=== PATIENT | male | born 1970 ===

== ENCOUNTER 2018-09-06 04:22 | Emergency (ER) | payer SELFPAY ==
[2018-09-06 04:23] VITALS: BMI 31.3
--- NOTE | 2018-09-06 04:39 | C.PDOC ---
History Of Present Illness Patient presents to the ER with a complaint of nausea, vomiting, and abdominal pain after having dinner from an outside source a few hours ago. Denies fever or chills. Time Seen by Provider: 09/06/18 04:38 History Per: Patient History/Exam Limitations: no limitations Onset/Duration Of Symptoms: Hrs Current Symptoms Are (Timing): Still Present Context: Food Severity: Moderate Pain Scale Rating Of: 4 Location Of Pain/Discomfort: Diffuse Radiation Of Pain To:: None Quality Of Discomfort: Unable To Describe Associated Symptoms: Nausea, Vomiting. denies: Fever, Chills Exacerbating Factors: None Alleviating Factors: None Recent travel outside of the [place]: No Past Medical History Reviewed: Historical Data, Nursing Documentation, Vital Signs - [facility] Procedures OP RED-INT FIX TIB/FIBUL (03/31/13) Family History: States: No Known Family Hx - Social History Hx Alcohol Use: Yes Hx Substance Use: No Review Of Systems Constitutional: Negative for: Fever, Chills Cardiovascular: Negative for: Chest Pain, Palpitations Respiratory: Negative for: Cough, Shortness of Breath Gastrointestinal: Positive for: Nausea, Vomiting, Abdominal Pain Genitourinary: Negative for: Dysuria, Hematuria Physical Exam - Physical Exam Appears: Non-toxic Skin: Warm, Dry Head: Normacephalic Oral Mucosa: Moist Chest: Symmetrical, No Tenderness Cardiovascular: Rhythm Regular Respiratory: No Rales, No Rhonchi, No Wheezing Gastrointestinal/Abdominal: Soft, Tenderness (Diffuse), No Guarding, No Rebound Back: Normal Inspection Extremity: Normal ROM Neurological/Psych: Oriented x3 Gait: Steady ED Course And Treatment - Laboratory Results Result Diagrams: 09/06/18 04:42 09/06/18 04:55 O2 Sat by Pulse Oximetry: 100 Pulse Ox Interpretation: Normal Progress Note: Blood work and urinalysis ordered. Pepcid, zofran, and IV fluids administered. Reevaluation Time: 06:24 Reassessment Condition: Improved Disposition Counseled Patient/Family Regarding: Studies Performed, Diagnosis, Need For Foll owup - Disposition Referrals: [facility] [Outside] Disposition: HOME/ ROUTINE Disposition Time: 04:39 Condition: FAIR Additional Instructions: Please return if symptoms recur Prescriptions: Ondansetron ODT [Zofran ODT] 1 odt PO BID PRN #10 odt PRN Reason: Nausea/Vomiting Instructions: Food Poisoning (DC), Nausea and Vomiting, Adult (DC) - Clinical Impression Clinical Impression: Abdominal pain, Food poisoning, Nausea & vomiting - Scribe Statement The provider has reviewed the documentation as recorded by the Scriberinn Nixon All medical record entries made by the Alvaibe were at my direction and pe rsonally dictated by me. I have reviewed the chart and agree that the record accurately reflects my personal performance of the history, physical exam, medical decision making, and the department course for this patient. I have also personally directed, reviewed, and agree with the discharge instructions and disposition.
[2018-09-06] MEDS ORDERED: Sodium Chloride 0.9% 1,000 ML IV ONE (04:42)
[2018-09-06 04:56] LABS: BASO # 0.1 K/uL (0.0-0.2); BASO % 0.4 % (0.0-2.0); EOS # 0.1 K/uL (0.0-0.7); EOS % 0.6 % (0.0-4.0); HEMOGLOBIN 15.1 g/dL (12.0-18.0); LYMPH # 3.5 K/uL (1.0-4.3); LYMPH % 25.1 % (20.0-40.0); MEAN PLATELET VOLUME 9.2 fL (7.2-11.7); MONO # 0.6 K/uL (0.0-0.8); MONO % 4.1 % (0.0-10.0); NEUT # 9.6 K/uL (1.8-7.0); NEUT % 69.8 % (50.0-75.0); NRBC % 0.1 % (0.0-2.0); RBC 5.4 Mil/uL (4.40-5.90); RED CELL DISTRIBUTION WIDTH 13.4 % (11.5-14.5); WHITE BLOOD COUNT 13.8 K/uL (4.8-10.8)
[2018-09-06 04:59] LABS: MEAN CELL VOLUME 82.3 fL (80.0-94.0)
[2018-09-06] MEDS ORDERED: Sodium Chloride 0.9% 1,000 ML ONE (05:01)
[2018-09-06 05:07] LABS: ALB/GLOB RATIO 1.7 (1.0-2.1); ALBUMIN 4.4 g/dL (3.5-5.0); ALT/SGPT 27 U/L (21-72); AST/SGOT 16 U/L (17-59); BLOOD UREA NITROGEN 19 mg/dL (9-20); GFR NON-AFRICAN AMERICAN > 60; LIPASE 166 U/L (23-300)
[2018-09-06 06:35] VITALS: BP 118/63; PULSE 55; RESP 18; TEMP 98.3; O2SAT 98
[2018-09-06 06:39] LABS: SQUAMOUS EPITHIAL < 1 /hpf (0-5); URINE BILIRUBIN NEGATIVE (NEGATIVE); URINE BLOOD NEGATIVE (NEGATIVE); URINE CLARITY Clear (Clear); URINE COLOR Yellow (YELLOW); URINE GLUCOSE (UA) 1+ mg/dL (Normal); URINE LEUKOCYTE ESTERASE NEG Leu/uL (Negative); URINE PROTEIN NEGATIVE (NEGATIVE); URINE UROBILINOGEN NORMAL mg/dL (0.2-1.0)
== END 2018-09-06 06:37 | disposition home or self-care (01) ==
LOC: C.ER 04:22
DX: T62.91XA Toxic effect of unspecified noxious substance eaten as food, accidental (unintentional), initial encounter (principal); R11.2 Nausea with vomiting, unspecified; R10.9 Unspecified abdominal pain
CPT/HCPCS: 80053; 81001; 83690; 85025; 96361; 96374; 96375; 99284; J2405; J7030

== ENCOUNTER 2018-11-28 05:57 | Inpatient (IN) | payer MEDICAID, OTHER ==
--- NOTE | 2018-11-28 05:59 | C.PDOC ---
History Of Present Illness Patient presents with sudden onset of severe ruq and mid epigastric abdominal pain. No fever chills, No chest pain, no shortness of breath, no tearing back pain, no arm pain. 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 In the ed, pt is diaphoretic. Time Seen by Provider: 11/28/18 05:59 History Per: Patient History/Exam Limitations: no limitations Onset/Duration Of Symptoms: Hrs Current Symptoms Are (Timing): Worse Context: Other Severity: Severe Pain Scale Rating Of: 9 Location Of Pain/Discomfort: RUQ, Epigastric Radiation Of Pain To:: None Quality Of Discomfort: Sharp Associated Symptoms: Nausea, Vomiting, Other (diaphoretic). denies: Fever, Chills Exacerbating Factors: None Alleviating Factors: None Last Bowel Movement: Yesterday Recent travel outside of the [place]: No Additional History Per: Patient Past Medical History Reviewed: Historical Data, Nursing Documentation, Vital Signs - [facility] Procedures OP RED-INT FIX TIB/FIBUL (03/31/13) Family History: States: No Known Family Hx - Social History Hx Alcohol Use: Yes Hx Substance Use: No - Immunization History Hx Tetanus Toxoid Vaccination: No Hx Influenza Vaccination: No Hx Pneumococcal Vaccination: No Review Of Systems Constitutional: Negative for: Fever, Chills ENT: Negative for: Throat Pain Cardiovascular: Negative for: Chest Pain Respiratory: Negative for: Shortness of Breath Gastrointestinal: Positive for: Nausea, Vomiting, Abdominal Pain Genitourinary: Negative for: Dysuria Musculoskeletal: Negative for: Back Pain Skin: Negative for: Rash Neurological: Negative for: Weakness Psych: Positive for: Anxiety Physical Exam - Physical Exam Appears: In Acute Distress Skin: Warm, Dry Head: Normacephalic Eye(s): bilateral: Normal Inspection Oral Mucosa: Moist Neck: Supple Chest: Symmetrical Cardiovascular: Rhythm Regular (som) Respiratory: No Rales, No Rhonchi, No Wheezing Gastrointestinal/Abdominal: Bowel Sounds (tympanic to percussion), Soft, Tenderness, Distention, No Guarding, No Rebound Back: No CVA Tenderness Extremity: Normal ROM Extremity: Bilateral: Atraumatic, Normal Color And Temperature Pulses: Left Dorsalis Pedis: Normal, Right Dorsalis Pedis: Normal Neurological/Psych: Oriented x3 Gait: Steady ED Course And Treatment - Laboratory Results Result Diagrams: 11/28/18 06:19 11/28/18 06:19 ECG: Interpreted By Me, Viewed By Me ECG Rhythm: Sinus Bradycardia (38 junctional), Nonspecific Changes O2 Sat by Pulse Oximetry: 99 Pulse Ox Interpretation: Normal Critical Care Time - Critical Care Note Total Time (in mins): 30 Documented critical care: time excludes all time spent performing seperately billable procedures. Disposition Counseled Patient/Family Regarding: Studies Performed, Diagnosis - Disposition Disposition Time: 05:59 Condition: GUARDED - Clinical Impression Clinical Impression: Abdominal pain Physician Patient Turnover Patient Signed Over To: Srinivas Nielsen Handoff Comments: pending labs, ct, re-eval and disposition
[2018-11-28] MEDS ORDERED: Sodium Chloride 0.9% 2,000 ML IV ONE (06:02)
[2018-11-28 06:07] VITALS: BMI 32.5
[2018-11-28 06:23] LABS: BASO % 0.3 % (0.0-2.0); EOS # 0.3 K/uL (0.0-0.7); EOS % 1.9 % (0.0-4.0); HEMOGLOBIN 15.3 g/dL (12.0-18.0); LYMPH % 32.9 % (20.0-40.0); MEAN CELL VOLUME 85.1 fL (80.0-94.0); MEAN CORPUSCULAR HEMOGLOBIN 28.4 pg (27.0-31.0); MEAN CORPUSCULAR HGB CONC 33.3 g/dL (33.0-37.0); MEAN PLATELET VOLUME 9.4 fL (7.2-11.7); MONO # 0.7 K/uL (0.0-0.8); MONO % 4.8 % (0.0-10.0); NEUT # 9.1 K/uL (1.8-7.0); NEUT % 60.1 % (50.0-75.0); RBC 5.4 Mil/uL (4.40-5.90); RED CELL DISTRIBUTION WIDTH 13.4 % (11.5-14.5); WHITE BLOOD COUNT 15.2 K/uL (4.8-10.8)
[2018-11-28] MEDS ORDERED: Piperacillin/Tazobact 3.375 gm 100 ML IVPB STA (06:32)
[2018-11-28 06:34] LABS: ALB/GLOB RATIO 1.9 (1.0-2.1); ALBUMIN 4.3 g/dL (3.5-5.0); ALT/SGPT 18 U/L (21-72); AST/SGOT 13 U/L (17-59); BLOOD UREA NITROGEN 20 mg/dL (9-20); CALCIUM 8.7 mg/dl (8.6-10.4); GFR NON-AFRICAN AMERICAN > 60; LIPASE 194 U/L (23-300)
[2018-11-28 06:36] LABS: INR 1.1; PROTHROMBIN TIME 11.6 SECONDS (9.7-12.2)
[2018-11-28] MEDS ORDERED: Piperacillin/Tazobact 3.375 gm 100 ML IVPB ONE (06:38)
[2018-11-28 06:46] LABS: B-TYPE NATRIURETIC PEPTIDE 21.8 pg/mL (0-900)
[2018-11-28] MEDS ORDERED: Iodixanol 320 MG/ML 100 ML BOTTLE IV ONE (06:46)
[2018-11-28] MEDS ORDERED: Morphine 4 MG/ML VIAL ONE (06:47)
[2018-11-28 09:11] LABS: SQUAMOUS EPITHIAL < 1 /hpf (0-5); URINE BACTERIA RARE (<OCC); URINE BILIRUBIN NEGATIVE (NEGATIVE); URINE BLOOD NEGATIVE (NEGATIVE); URINE CLARITY Clear (Clear); URINE COLOR Yellow (YELLOW); URINE GLUCOSE (UA) 1+ mg/dL (Normal); URINE LEUKOCYTE ESTERASE NEG Leu/uL (Negative); URINE PROTEIN NEGATIVE (NEGATIVE)
--- NOTE | 2018-11-28 10:19 | CP.PCM.HP ---
History of Present Illness - History of Present Illness History of Present Illness: Ken Barroso PGY1 H&P for Dr. Tristan CC: vomiting and abdominal pain Patient is a 48yo M with no PMH presenting to the ED with vomiting and abdominal pain x1 day. He reports the nausea began at 2am after which the abdominal discomfort began. He reports multiple episodes of nonbloody, green/yellow vomit. He describes the abdominal pain as cramping, intermittent and 9/10 at its worst. He claims the pain is in his upper midline abdomen and radiates to his back. He says he was sweating. He denies taking anything at home to help. He reports eating beef and rice from takeout last night from dinner. He reports previous history of this, upon which he came to ED and was told he had food poisoning. He says his stools are soft and formed. He denies diarrhea, dysuria, dizziness, shortness of breath, chest pain, numbness or tingling. He denies drinking alcohol last night. SxH: L ankle surgery SocH: 20 pack year tobacco history, denies alcohol or recreational drug use. FamH: mom-, CVA. dad-alive, DM, HLD, heart disease Allergies: NKDA Meds: none PMD: none Present on Admission - Present on Admission Any Indicators Present on Admission: No Review of Systems - Review of Systems Review of Systems: as per HPI - Constitutional Constitutional: absent: Chills, Fever - EENT Eyes: absent: Blurred Vision Nose/Mouth/Throat: absent: Nasal Discharge, Sore Throat - Cardiovascular Cardiovascular: Diaphoresis. absent: Chest Pain, Dyspnea - Respiratory Respiratory: absent: Dyspnea - Gastrointestinal Gastrointestinal: Abdominal Pain, Cramping, Nausea, Vomiting. absent: Diarrhea, Hematemesis - Genitourinary Genitourinary: absent: Dysuria, Hematuria - Musculoskeletal Musculoskeletal: absent: Numbness, Tingling - Integumentary Integumentary: absent: Swelling - Neurological Neurological: absent: Numbness, Tingling, Weakness - Endocrine Endocrine: absent: Palpitations Past Patient History - Past Social History Smoking Status: Light Smoker < 10 Cigarettes Daily - PSYCHIATRIC Hx Substance Use: No - SURGICAL HISTORY Hx Orthopedic Surgery: Yes (Left ankle surgery) - ANESTHESIA Hx Anesthesia: Yes Hx Anesthesia Reactions: No Meds Allergies/Adverse Reactions: Allergies Allergy/AdvReac Type Severity Reaction Status Date / Time No Known Allergies Allergy Verified 11/28/18 06:04 Physical Exam - Constitutional Appears: Well, No Acute Distress - Head Exam Head Exam: ATRAUMATIC, NORMOCEPHALIC - Eye Exam Eye Exam: EOMI, Normal appearance Pupil Exam: NORMAL ACCOMODATION - ENT Exam ENT Exam: Mucous Membranes Moist - Neck Exam Neck exam: Positive for: Normal Inspection. Negative for: Tenderness - Respiratory Exam Respiratory Exam: Clear to Auscultation Bilateral, NORMAL BREATHING PATTERN. absent: Rales, Rhonchi, Wheezes - Cardiovascular Exam Cardiovascular Exam: REGULAR RHYTHM, +S1, +S2. absent: Gallop, Rubs, Systolic Murmur - GI/Abdominal Exam GI & Abdominal Exam: Normal Bowel Sounds, Soft. absent: Distended, Tenderness - Extremities Exam Extremities exam: Negative for: pedal edema, tenderness - Neurological Exam Neurological exam: Alert, CN II-XII Intact, Oriented x3, Reflexes Normal - Psychiatric Exam Psychiatric exam: Normal Affect, Normal Mood - Skin Skin Exam: Normal Color Results - Vital Signs Recent Vital Signs: Last Vital Signs Temp 98.1 F 11/28/18 09:33 Pulse 65 11/28/18 09:33 Resp 16 11/28/18 09:33 BP 119/61 11/28/18 09:33 Pulse Ox 99 11/28/18 09:33 - Labs Result Diagrams: 11/28/18 06:19 11/28/18 06:19 Labs: Laboratory Results - last 24 hr 11/28/18 11/28/18 11/28/18 06:00 06:19 06:19 WBC 15.2 H RBC 5.40 Hgb 15.3 Hct 46.0 MCV 85.1 D MCH 28.4 MCHC 33.3 RDW 13.4 Plt Count 230 MPV 9.4 Neut % (Auto) 60.1 Lymph % (Auto) 32.9 [place] % (Auto) 4.8 Eos % (Auto) 1.9 Baso % (Auto) 0.3 Neut # (Auto) 9.1 H Lymph # (Auto) 5.0 H [place] # (Auto) 0.7 Eos # (Auto) 0.3 Baso # (Auto) 0.0 PT INR APTT Sodium 139 Potassium 3.5 L Chloride 101 Carbon Dioxide 30 Anion Gap 11 BUN 20 Creatinine 1.1 Est GFR ( Amer) > 60 Est GFR (Non-Af Amer) > 60 POC Glucose (mg/dL) 164 H Random Glucose 188 H Lactic Acid Calcium 8.7 Total Bilirubin 0.6 AST 13 L ALT 18 L D Alkaline Phosphatase 123 Troponin I < 0.0120 NT-Pro-B Natriuret Pep 21.8 Total Protein 6.6 Albumin 4.3 Globulin 2.2 Albumin/Globulin Ratio 1.9 Lipase 194 Urine Color Urine Clarity Urine pH Ur Specific [place] Urine Protein Urine Glucose (UA) Urine Ketones Urine Blood Urine Nitrate Urine Bilirubin Urine Urobilinogen Ur Leukocyte Esterase Urine WBC (Auto) Urine RBC (Auto) Ur Squamous Epith Cells Urine Bacteria Blood Type Antibody Screen 11/28/18 11/28/18 11/28/18 06:19 06:19 08:59 WBC RBC Hgb Hct MCV MCH MCHC RDW Plt Count MPV Neut % (Auto) Lymph % (Auto) [place] % (Auto) Eos % (Auto) Baso % (Auto) Neut # (Auto) Lymph # (Auto) [place] # (Auto) Eos # (Auto) Baso # (Auto) PT 11.6 INR 1.1 APTT 26 Sodium Potassium Chloride Carbon Dioxide Anion Gap BUN Creatinine Est GFR ( Amer) Est GFR (Non-Af Amer) POC Glucose (mg/dL) Random Glucose Lactic Acid Calcium Total Bilirubin AST ALT Alkaline Phosphatase Troponin I NT-Pro-B Natriuret Pep Total Protein Albumin Globulin Albumin/Globulin Ratio Lipase Urine Color Yellow Urine Clarity Clear Urine pH 5.0 Ur Specific [place] 1.015 Urine Protein Negative Urine Glucose (UA) 1+ H Urine Ketones Negative Urine Blood Negative Urine Nitrate Negative Urine Bilirubin Negative Urine Urobilinogen 2.0 Ur Leukocyte Esterase Neg Urine WBC (Auto) 1 Urine RBC (Auto) 1 Ur Squamous Epith Cells < 1 Urine Bacteria Rare Blood Type B POSITIVE Antibody Screen Negative 11/28/18 09:55 WBC RBC Hgb Hct MCV MCH MCHC RDW Plt Count MPV Neut % (Auto) Lymph % (Auto) [place] % (Auto) Eos % (Auto) Baso % (Auto) Neut # (Auto) Lymph # (Auto) [place] # (Auto) Eos # (Auto) Baso # (Auto) PT INR APTT Sodium Potassium Chloride Carbon Dioxide Anion Gap BUN Creatinine Est GFR ( Amer) Est GFR (Non-Af Amer) POC Glucose (mg/dL) Random Glucose Lactic Acid 2.2 H Calcium Total Bilirubin AST ALT Alkaline Phosphatase Troponin I NT-Pro-B Natriuret Pep Total Protein Albumin Globulin Albumin/Globulin Ratio Lipase Urine Color Urine Clarity Urine pH Ur Specific [place] Urine Protein Urine Glucose (UA) Urine Ketones Urine Blood Urine Nitrate Urine Bilirubin Urine Urobilinogen Ur Leukocyte Esterase Urine WBC (Auto) Urine RBC (Auto) Ur Squamous Epith Cells Urine Bacteria Blood Type Antibody Screen Assessment & Plan - Assessment and Plan (Free Text) Assessment: Patient is a 48yo M with no PMH presenting to the ED with vomiting and abdominal pain x1 day admitted for further evaluation and treatment. Plan: Abdominal Pain - afebrile - leukocytosis - CTA chest/abd/pel: nonobstructing 4mm L renal calculus. no hydronephrosis b/l. b/l prostate gland enlargement. no evidence of thoracic or abdominal aortic aneurysm or dissection. no evidence of central or segmental PE. liver, spleen, pancrease, gallbladder unremarkable. stomach nondistended. bowel loops without obstruction. - trop negative - lipase wnl - lactate 2.2 - given morphine, protonix, reglan, toradol, zosyn, zofran in ED - toradol 30mg IV q6h PRN - zofran 4mg IV q6h PRN - protonix 40mg IV q12h - NS @100cc/hr - f/u hep panel - f/u HbA1c - f/u lipid panel - advance diet as tolerated Hypokalemia - K+ 3.5 - likely secondary to emesis - repleted - f/u AM CBC PPX DVT: SCDs GI: protonix 40mg IV BID Liquid diet Dispo: advance diet as tolerated. if symptoms improve, consider d/c tomorrow Patient seen and case reviewed with Dr. Tristan
--- NOTE | 2018-11-28 10:25 | CT ---
Date of service: 11/28/2018 CT angio chest, abdomen, and pelvis Indication: abd pain, diaphoretic Technique: Contiguous axial images of the chest, abdomen, and pelvis. Coronal and Sagittal reformats generated and reviewed. This CT exam was performed using 1 or more of the following dose reduction techniques: Automated exposure control, adjustment of the MAA and/or kV according to patient size, and/or use of iterative reconstruction technique. Contrast: 100 cc Visipaque 320 IV Radiation dose: Total exam DLP = 2362.52 MGy-cm. Comparison: Chest x-ray performed 03/31/13 Findings: Visualized portions of the inferior thyroid gland appear unremarkable. The mediastinal and hilar vascular structures appear within normal limits. The heart appears within normal limits of size. No large central or segmental pulmonary embolus evident. Small focus of air within the main pulmonary artery can be seen post contrast injection. The thoracic and abdominal aorta appear within normal limits of caliber without evidence of aneurysmal dilatation or dissection. No focal consolidation. No pleural effusion. No pneumothorax. 5 mm right lower lobe calcified granuloma. Nonobstructing 4 mm left renal calculus. No hydronephrosis or obstructing calculus evident bilaterally. The liver, spleen, pancreas, adrenal glands, and gallbladder appear unremarkable. The stomach is nondistended. The bowel loops appear within normal limits of caliber without evidence of intestinal obstruction. There is no definite free air. The appendix appears within normal limits of caliber. No secondary signs of acute appendicitis. The prostate gland measures approximately 4.1 x 4.4 cm. The urinary bladder appears unremarkable. Small bilateral inguinal hernias containing fat and vessels. No acute osseous abnormality is detected. Impression: Nonobstructing 4 mm left renal calculus. No hydronephrosis bilaterally. Bilateral prostate gland enlargement. Recommend correlation with PSA. No evidence of thoracic or abdominal aortic aneurysm or dissection. No evidence of central or segmental pulmonary embolus. Additional incidental findings as above. Preliminary impression was provided by [employer].
[2018-11-28 10:29] LABS: BARBITURATES, UR NEGATIVE (NEGATIVE); BENZODIAZEPINES, UR NEGATIVE (NEGATIVE); PHENCYCLIDINE, UR NEGATIVE (NEGATIVE)
[2018-11-28] MEDS: Sodium Chloride 0.9% 1,000 ML IV SCH ×2 (10:51→20:42)
[2018-11-28 11:00] LABS: OPIATES, UR POSITIVE (NEGATIVE)
[2018-11-28] MEDS ORDERED: Potassium Chloride 20 mEq/15 ml LIQ UD PO ONE (13:45)
[2018-11-29 03:37] LABS: BASO # 0.1 K/uL (0.0-0.2); BASO % 0.4 % (0.0-2.0); EOS % 0.3 % (0.0-4.0); HEMOGLOBIN 14.1 g/dL (12.0-18.0); LYMPH # 2.7 K/uL (1.0-4.3); LYMPH % 19.6 % (20.0-40.0); MEAN CELL VOLUME 85.1 fL (80.0-94.0); MEAN CORPUSCULAR HEMOGLOBIN 27.9 pg (27.0-31.0); MEAN CORPUSCULAR HGB CONC 32.8 g/dL (33.0-37.0); MONO # 0.8 K/uL (0.0-0.8); MONO % 5.8 % (0.0-10.0); NEUT % 73.9 % (50.0-75.0); RBC 5.05 Mil/uL (4.40-5.90); RED CELL DISTRIBUTION WIDTH 13.8 % (11.5-14.5); WHITE BLOOD COUNT 13.5 K/uL (4.8-10.8)
[2018-11-29 03:48] LABS: HDL CHOLESTEROL 44 mg/dL (30-70)
[2018-11-29 03:50] LABS: ALB/GLOB RATIO 1.6 (1.0-2.1); ALBUMIN 3.7 g/dL (3.5-5.0); ALT/SGPT 139 U/L (21-72); AST/SGOT 73 U/L (17-59); BLOOD UREA NITROGEN 14 mg/dL (9-20); CALCIUM 8.2 mg/dl (8.6-10.4); GFR NON-AFRICAN AMERICAN > 60
[2018-11-29 04:00] LABS: LDL CHOLESTEROL 99 mg/dL (0-129)
[2018-11-29 04:02] LABS: CK-MB < 0.22 ng/mL (0.0-3.38)
[2018-11-29 05:35] LABS: HEPATITIS B SURFACE AG Negative (NEGATIVE)
[2018-11-29 05:40] LABS: HEPATITIS A IGM NEGATIVE (NEGATIVE); HEPATITIS B CORE AB NEGATIVE (NEGATIVE)
[2018-11-29] MEDS: Sodium Chloride 0.9% 1,000 ML IV SCH ×3 (05:42→18:42)
[2018-11-29 05:52] LABS: HEPATITIS C ANTIBODY NEGATIVE (NEGATIVE)
[2018-11-29] MEDS ORDERED: Influenza Vaccine 60 mcg/0.5 mL SYR (4YR UP) IM ONE (10:00)
[2018-11-29] MEDS ORDERED: Pneumococcal 23-Valent Vaccine IM ONE (10:00)
[2018-11-29] MEDS ORDERED: Tramadol 25 mg PO PRN (12:54)
--- NOTE | 2018-11-29 15:40 | CP.PCM.PN ---
Subjective - Date & Time of Evaluation Date of Evaluation: 11/29/18 Time of Evaluation: 15:35 - Subjective Subjective: Ken Barroso PGY1 Progress Note for Dr. Tristan Pt was examined at bedside this morning. He reports being able to tolerate lunch well, with his abdominal pain subsiding. He denies further episodes of chest pain, shortness of breath, weakness, or dizziness. Objective - Vital Signs/Intake and Output Vital Signs (last 24 hours): Temp Pulse Resp BP Pulse Ox 99.0 F 46 L 18 127/68 97 11/29/18 07:00 11/29/18 12:56 11/29/18 07:00 11/29/18 07:00 11/29/18 07:00 - Medications Medications: Current Medications Heparin Sodium (Porcine) (Heparin) 5,000 units SC Q12 [facility] Last Admin: 11/29/18 09:52 Dose: 5,000 units Sodium Chloride (Sodium Chloride 0.9%) 1,000 mls @ 125 mls/hr IV .Q8H [facility] Last Admin: 11/29/18 11:07 Dose: 125 mls/hr Ketorolac Tromethamine (Toradol) 30 mg IV Q6 PRN PRN Reason: Pain, moderate (4-7) Last Admin: 11/29/18 09:54 Dose: 30 mg Ondansetron HCl (Zofran Inj) 4 mg IVP Q6 PRN PRN Reason: Nausea/Vomiting Pantoprazole Sodium (Protonix Inj) 40 mg IVP Q12H [facility] Last Admin: 11/29/18 10:54 Dose: 40 mg Tramadol HCl (Ultram) 25 mg PO TID PRN PRN Reason: Pain, severe (8-10) - Labs Labs: 11/29/18 03:33 11/29/18 03:33 PT 11.6 SECONDS (9.7-12.2) 11/28/18 06:19 INR 1.1 11/28/18 06:19 APTT 26 SECONDS (21-34) 11/28/18 06:19 - Constitutional Appears: Well, No Acute Distress - Head Exam Head Exam: ATRAUMATIC, NORMOCEPHALIC - Eye Exam Eye Exam: EOMI, Normal appearance Pupil Exam: NORMAL ACCOMODATION - ENT Exam ENT Exam: Mucous Membranes Moist - Neck Exam Neck Exam: Normal Inspection - Respiratory Exam Respiratory Exam: Clear to Ausculation Bilateral, NORMAL BREATHING PATTERN. absent: Rales, Rhonchi, Wheezes - Cardiovascular Exam Cardiovascular Exam: Bradycardia, +S1, +S2. absent: Gallop, Rubs, Murmur - GI/Abdominal Exam GI & Abdominal Exam: Soft, Tenderness, Normal Bowel Sounds. absent: Distended - Extremities Exam Extremities Exam: Normal Inspection. absent: Pedal Edema - Back Exam Back Exam: absent: CVA tenderness (L), CVA tenderness (R) - Neurological Exam Neurological Exam: Alert, Awake, CN II-XII Intact, Oriented x3 - Psychiatric Exam Psychiatric exam: Depressed - Skin Skin Exam: Normal Color Assessment and Plan - Assessment and Plan (Free Text) Assessment: Patient is a 48yo M with no PMH presenting to the ED with vomiting and abdominal pain x1 day admitted for further evaluation and treatment. Plan: Abdominal Pain - afebrile - leukocytosis improving - CTA chest/abd/pel: nonobstructing 4mm L renal calculus. no hydronephrosis b/l. b/l prostate gland enlargement. no evidence of thoracic or abdominal aortic aneurysm or dissection. no evidence of central or segmental PE. liver, spleen, pancrease, gallbladder unremarkable. stomach nondistended. bowel loops without obstruction. - trop negative - lipase wnl - lactate 2.2 - hep panel negative - lipid panel unremarkable - tramadol 25mg PO q6h PRN - zofran 4mg IV q6h PRN - protonix 40mg IV q12h - NS @125cc/hr - f/u HbA1c - advance diet as tolerated Bradycardia - likely secondary to dehydration vs. vagal response to pain - EKG on admission: som @38bpm with junctional rhythm - rpt troponin neg - rpt EKG: bradycardia - NS @125cc/hr - Cardiology consulted, Dr. Dubose - recs appreciated f/u ECHO Hypokalemia resolved - K+ 4.2 - likely secondary to emesis PPX DVT: SCDs GI: protonix 40mg IV BID Soft bland diet Dispo: advance diet as tolerated. awaiting ECHO prior to d/c. Patient seen and case reviewed with Dr. Tristan
[2018-11-29 15:51] VITALS: RESP 20
--- NOTE | 2018-11-29 23:06 | CON ---
DATE: 11/29/2018 CARDIOLOGY CONSULTATION REASON FOR CONSULTATION: Sinus bradycardia and previous junctional escape. HISTORY OF PRESENT ILLNESS: The patient is a 48-year-old male, who has known prior cardiac history, who presented because of epigastric pain, nausea and vomiting was noted and was noted on the monitor to be in sinus bradycardia with previous junctional escape. The patient did report dizziness and the patient required one dose of Ativan 0.5 mg IV push overnight; however, the patient is in a steady epigastric discomfort with continuous feeling of nausea. SOCIAL HISTORY: Nonsmoker and nondrinker. MEDICATIONS: Subcutaneous heparin 5000 units every 12 hours, Protonix 40 mg intravenously twice a day, normal saline at 125 mL an hour, Zofran 4 mg intravenously every 6 hours p.r.n. PHYSICAL EXAMINATION: GENERAL: The patient is a middle-aged male who does not appear to be in acute distress. VITAL SIGNS: Blood pressure 127/68, heart rate the lowest was 43 beats per minute, temperature 99, respirations 18. HEENT: Normocephalic. CHEST: Clear. HEART: S1 and S2, regular. ABDOMEN: Epigastric tenderness. No guarding or rigidity. No McBurney tenderness. EXTREMITIES: No pedal edema. LABORATORY DATA: Urine drug screen is positive for opiate. SMA-7: Today's sodium 138, potassium 4.2, chloride 108, CO2 of 25, glucose 115, BUN 14, creatinine 0.9. His AST and ALT are elevated today. Lipid profile is within normal limits. Lipase is within normal limits. PT INR and PTT are within normal limit. Hemoglobin and hematocrit are within normal limits, white count 13.5 and platelet count 159,000. Hepatitis profile is within normal limits. Initial EKG revealed junctional at the rate of 38. Today's EKG revealed sinus bradycardia at the rate of 50. Chest, abdomen and pelvis CT angio, the impression is nonobstructing 4 mm left renal calculus. No hydronephrosis. Bilateral prostate gland enlargement. No evidence of thoracic or abdominal aortic aneurysm of dissection, no evidence of central or segmental pulmonary embolus. ASSESSMENT: 1. Sinus bradycardia most likely related to the patient's response to his steady epigastric discomfort. The dizziness that the patient had could be in part because of his dehydration. 2. Nonobstructing renal calculus. 3. Prostatic enlargement. RECOMMENDATIONS: The case was discussed the medical team. I strongly recommended gastroenterology evaluation and increase intravenous fluid. Change nasal O2 to humidified nasal O2 instead, obtain an echocardiogram and TSH level. I will also request [employer]. Nitesh Dubose MD
[2018-11-30] MEDS: Sodium Chloride 0.9% 1,000 ML IV SCH (02:50)
[2018-11-30 08:33] LABS: BASO # 0.1 K/uL (0.0-0.2); BASO % 0.4 % (0.0-2.0); HEMOGLOBIN 13.4 g/dL (12.0-18.0); LYMPH # 1.4 K/uL (1.0-4.3); LYMPH % 10.1 % (20.0-40.0); MEAN CELL VOLUME 84.2 fL (80.0-94.0); MEAN CORPUSCULAR HEMOGLOBIN 28.6 pg (27.0-31.0); MEAN PLATELET VOLUME 9.5 fL (7.2-11.7); MONO # 1.1 K/uL (0.0-0.8); MONO % 7.8 % (0.0-10.0); NEUT # 11.6 K/uL (1.8-7.0); NEUT % 81.7 % (50.0-75.0); RBC 4.68 Mil/uL (4.40-5.90); RED CELL DISTRIBUTION WIDTH 13.5 % (11.5-14.5); WHITE BLOOD COUNT 14.2 K/uL (4.8-10.8)
[2018-11-30 08:51] LABS: AMYLASE 55 U/L (30-110); LIPASE 48 U/L (23-300)
[2018-11-30 08:54] LABS: ALB/GLOB RATIO 1.5 (1.0-2.1); ALBUMIN 3.6 g/dL (3.5-5.0); ALT/SGPT 74 U/L (21-72); AST/SGOT 23 U/L (17-59); BLOOD UREA NITROGEN 7 mg/dL (9-20); CALCIUM 8.2 mg/dl (8.6-10.4); GFR NON-AFRICAN AMERICAN > 60
[2018-11-30] MEDS ORDERED: Potassium Chloride 20 mEq/15 ml LIQ UD PO ONE (09:30)
[2018-11-30] MEDS: Potassium Chl 20 mEq in NS 1,000 ML IV SCH ×2 (10:13→19:08)
--- NOTE | 2018-11-30 11:43 | CP.PCM.PN ---
Objective - Vital Signs/Intake and Output Vital Signs (last 24 hours): Temp Pulse Resp BP Pulse Ox 97.9 F 58 L 20 131/80 95 11/30/18 08:00 11/30/18 08:00 11/30/18 08:00 11/30/18 08:00 11/30/18 08:00 Intake and Output: 11/30/18 11/30/18 06:59 18:59 Intake Total 2450 Output Total 1450 Balance 1000 - Medications Medications: Current Medications Heparin Sodium (Porcine) (Heparin) 5,000 units SC Q12 [facility] Last Admin: 11/30/18 10:17 Dose: 5,000 units Potassium Chloride/Sodium Chloride (Potassium Chl 20 Meq In Ns) 1,000 mls @ 125 mls/hr IV .Q8H [facility] Last Admin: 11/30/18 10:13 Dose: 125 mls/hr Ketorolac Tromethamine (Toradol) 30 mg IV Q6 PRN PRN Reason: Pain, moderate (4-7) Last Admin: 11/30/18 07:08 Dose: 30 mg Ondansetron HCl (Zofran Inj) 4 mg IVP Q6 PRN PRN Reason: Nausea/Vomiting Pantoprazole Sodium (Protonix Inj) 40 mg IVP Q12H [facility] Last Admin: 11/30/18 10:44 Dose: 40 mg Tramadol HCl (Ultram) 25 mg PO TID PRN PRN Reason: Pain, severe (8-10) - Labs Labs: 11/30/18 08:26 11/30/18 08:26 PT 11.6 SECONDS (9.7-12.2) 11/28/18 06:19 INR 1.1 11/28/18 06:19 APTT 26 SECONDS (21-34) 11/28/18 06:19
--- NOTE | 2018-11-30 12:50 | CP.PCM.CON ---
History of Present Illness - History of Present Illness History of Present Illness: 48 yo male no sig PMH, presents with 1 day Nausea, vomit and ,id to lower abdom pain- sharp and pressure. + constip. No BM since thur. Found to have bradycardia- and cardiol cons was obtained. Denies RB, melena, dysphagi, PUD, diarrhea Review of Systems - Constitutional Constitutional: Fever. absent: Fatigue, Weight Gain, Weight Loss - EENT Eyes: absent: Photophobia - Cardiovascular Cardiovascular: Irregular Heart Rhythm. absent: Chest Pain, Dyspnea - Respiratory Respiratory: absent: Dyspnea, Hemoptysis, Wheezing - Gastrointestinal Gastrointestinal: Abdominal Pain, Constipation, Nausea, Vomiting. absent: Coffee Ground Emesis, Dysphagia, Hematemesis, Hematochezia, Melena - Genitourinary Genitourinary: absent: Flank Pain, Hematuria, Nocturia - Musculoskeletal Musculoskeletal: absent: Muscle Cramps, Muscle Weakness - Integumentary Integumentary: absent: Pruritus, Rash, Jaundice - Neurological Neurological: absent: Convulsions, Syncope - Psychiatric Psychiatric: absent: Hallucinations Past Patient History - Past Medical History & Family History Past Medical History?: Yes - Past Social History Smoking Status: Light Smoker < 10 Cigarettes Daily - CARDIAC Hx Cardiac Disorders: No - PULMONARY Hx Respiratory Disorders: No - NEUROLOGICAL Hx Neurological Disorder: No - HEENT Hx HEENT Problems: No - RENAL Hx Chronic Kidney Disease: No - ENDOCRINE/METABOLIC Hx Endocrine Disorders: No - HEMATOLOGICAL/ONCOLOGICAL Hx Blood Disorders: No - INTEGUMENTARY Hx Dermatological Problems: No - MUSCULOSKELETAL/RHEUMATOLOGICAL Hx Falls: No - GASTROINTESTINAL Hx Gastrointestinal Disorders: No - GENITOURINARY/GYNECOLOGICAL Hx Genitourinary Disorders: No - PSYCHIATRIC Hx Substance Use: No - SURGICAL HISTORY Hx Orthopedic Surgery: Yes (Left ankle surgery) - ANESTHESIA Hx Anesthesia: Yes Hx Anesthesia Reactions: No Meds Allergies/Adverse Reactions: Allergies Allergy/AdvReac Type Severity Reaction Status Date / Time No Known Allergies Allergy Verified 11/28/18 06:04 - Medications Medications: Current Medications Heparin Sodium (Porcine) (Heparin) 5,000 units SC Q12 [facility] Last Admin: 11/30/18 10:17 Dose: 5,000 units Potassium Chloride/Sodium Chloride (Potassium Chl 20 Meq In Ns) 1,000 mls @ 125 mls/hr IV .Q8H [facility] Last Admin: 11/30/18 10:13 Dose: 125 mls/hr Ketorolac Tromethamine (Toradol) 30 mg IV Q6 PRN PRN Reason: Pain, moderate (4-7) Last Admin: 11/30/18 07:08 Dose: 30 mg Ondansetron HCl (Zofran Inj) 4 mg IVP Q6 PRN PRN Reason: Nausea/Vomiting Pantoprazole Sodium (Protonix Inj) 40 mg IVP Q12H [facility] Last Admin: 11/30/18 10:44 Dose: 40 mg Tramadol HCl (Ultram) 25 mg PO TID PRN PRN Reason: Pain, severe (8-10) Physical Exam - Constitutional Appears: Well - Respiratory Exam Respiratory Exam: Clear to Auscultation Bilateral - Cardiovascular Exam Cardiovascular Exam: Bradycardia - GI/Abdominal Exam GI & Abdominal Exam: Normal Bowel Sounds, Soft, Tenderness. absent: Firm, Guarding, Hernia, Mass, Rebound Additional comments: mild lower mid tenderness. - Extremities Exam Extremities exam: Negative for: pedal edema - Neurological Exam Neurological exam: Alert, Oriented x3 Results - Vital Signs Recent Vital Signs: Last Vital Signs Temp 97.9 F 11/30/18 08:00 Pulse 62 11/30/18 12:06 Resp 20 11/30/18 08:00 BP 131/80 11/30/18 08:00 Pulse Ox 95 11/30/18 08:00 - Labs Result Diagrams: 11/30/18 08:26 11/30/18 08:26 Labs: Laboratory Results - last 24 hr 11/29/18 11/29/18 11/30/18 03:33 12:59 08:12 WBC RBC Hgb Hct MCV MCH MCHC RDW Plt Count MPV Neut % (Auto) Lymph % (Auto) [place] % (Auto) Eos % (Auto) Baso % (Auto) Neut # (Auto) Lymph # (Auto) [place] # (Auto) Eos # (Auto) Baso # (Auto) Sodium Potassium Chloride Carbon Dioxide Anion Gap BUN Creatinine Est GFR ( Amer) Est GFR (Non-Af Amer) Random Glucose Hemoglobin A1c 5.4 Lactic Acid Calcium Phosphorus Magnesium Total Bilirubin AST ALT Alkaline Phosphatase Total Protein Albumin Globulin Albumin/Globulin Ratio Amylase Lipase Prostate Specific Ag 1.28 Influenza Typ A,B (EIA) Negative for flu a/b 11/30/18 11/30/18 11/30/18 08:26 08:26 08:26 WBC 14.2 H RBC 4.68 Hgb 13.4 Hct 39.4 MCV 84.2 MCH 28.6 MCHC 34.0 RDW 13.5 Plt Count 143 MPV 9.5 Neut % (Auto) 81.7 H Lymph % (Auto) 10.1 L Navarro % (Auto) 7.8 Eos % (Auto) 0.0 Baso % (Auto) 0.4 Neut # (Auto) 11.6 H Lymph # (Auto) 1.4 [place] # (Auto) 1.1 H Eos # (Auto) 0.0 Baso # (Auto) 0.1 Sodium 136 Potassium 3.3 L Chloride 103 Carbon Dioxide 28 Anion Gap 8 L BUN 7 L Creatinine 0.7 L Est GFR ( Amer) > 60 Est GFR (Non-Af Amer) > 60 Random Glucose 114 H Hemoglobin A1c Lactic Acid 1.1 Calcium 8.2 L Phosphorus 2.4 L Magnesium 1.7 Total Bilirubin 2.3 H AST 23 ALT 74 H D Alkaline Phosphatase 101 Total Protein 5.9 L Albumin 3.6 Globulin 2.3 Albumin/Globulin Ratio 1.5 Amylase Lipase Prostate Specific Ag Influenza Typ A,B (EIA) 11/30/18 08:26 WBC RBC Hgb Hct MCV MCH MCHC RDW Plt Count MPV Neut % (Auto) Lymph % (Auto) Navarro % (Auto) Eos % (Auto) Baso % (Auto) Neut # (Auto) Lymph # (Auto) [place] # (Auto) Eos # (Auto) Baso # (Auto) Sodium Potassium Chloride Carbon Dioxide Anion Gap BUN Creatinine Est GFR ( Amer) Est GFR (Non-Af Amer) Random Glucose Hemoglobin A1c Lactic Acid Calcium Phosphorus Magnesium Total Bilirubin AST ALT Alkaline Phosphatase Total Protein Albumin Globulin Albumin/Globulin Ratio Amylase 55 Lipase 48 Prostate Specific Ag Influenza Typ A,B (EIA) Assessment & Plan (1) Abdominal pain Assessment and Plan: Consider related to bradycardia. Consider CONSTIPATION. I doubt ulcer, gastritis, colitis. Lipase is normal. Doubt GB dis- check sono- report pending. REc- PPI, colace, lactulose, check sono. Status: Acute (2) Bradycardia Assessment and Plan: CArdiol on case Status: Acute (3) Hypotension Status: Acute (4) Nausea & vomiting Assessment and Plan: as above. Status: Acute
--- NOTE | 2018-11-30 17:08 | CP.PCM.PN ---
Subjective - Date & Time of Evaluation Date of Evaluation: 11/30/18 Time of Evaluation: 10:00 - Subjective Subjective: seen and examined this morning. patient was complaining of abdominal pain,c/o nausea,denies vomting,no diarrhea,Had fever last night. Objective - Vital Signs/Intake and Output Vital Signs (last 24 hours): Temp Pulse Resp BP Pulse Ox 97.9 F 62 20 131/80 95 11/30/18 08:00 11/30/18 12:06 11/30/18 08:00 11/30/18 08:00 11/30/18 08:00 Intake and Output: 11/30/18 11/30/18 06:59 18:59 Intake Total 2450 Output Total 1450 Balance 1000 - Medications Medications: Current Medications Heparin Sodium (Porcine) (Heparin) 5,000 units SC Q12 [facility] Last Admin: 11/30/18 10:17 Dose: 5,000 units Potassium Chloride/Sodium Chloride (Potassium Chl 20 Meq In Ns) 1,000 mls @ 125 mls/hr IV .Q8H [facility] Last Admin: 11/30/18 10:13 Dose: 125 mls/hr Ketorolac Tromethamine (Toradol) 30 mg IV Q6 PRN PRN Reason: Pain, moderate (4-7) Last Admin: 11/30/18 13:37 Dose: 30 mg Ondansetron HCl (Zofran Inj) 4 mg IVP Q6 PRN PRN Reason: Nausea/Vomiting Pantoprazole Sodium (Protonix Inj) 40 mg IVP Q12H [facility] Last Admin: 11/30/18 10:44 Dose: 40 mg Tramadol HCl (Ultram) 25 mg PO TID PRN PRN Reason: Pain, severe (8-10) - Labs Labs: 11/30/18 08:26 11/30/18 08:26 PT 11.6 SECONDS (9.7-12.2) 11/28/18 06:19 INR 1.1 11/28/18 06:19 APTT 26 SECONDS (21-34) 11/28/18 06:19 - Constitutional Appears: Non-toxic - Head Exam Head Exam: NORMAL INSPECTION - Eye Exam Eye Exam: Normal appearance - ENT Exam ENT Exam: Mucous Membranes Moist - Neck Exam Neck Exam: Full ROM - Respiratory Exam Respiratory Exam: Clear to Ausculation Bilateral, NORMAL BREATHING PATTERN - Cardiovascular Exam Cardiovascular Exam: Bradycardia, REGULAR RHYTHM - GI/Abdominal Exam GI & Abdominal Exam: Soft, Tenderness (left and right hypochodrial tenderness), Normal Bowel Sounds - Rectal Exam Rectal Exam: Deferred. absent: Black Stool - Extremities Exam Extremities Exam: Full ROM - Back Exam Back Exam: NORMAL INSPECTION - Neurological Exam Neurological Exam: Awake, Oriented x3 - Psychiatric Exam Psychiatric exam: Normal Mood - Skin Skin Exam: Dry, Intact Assessment and Plan - Assessment and Plan (Free Text) Assessment: Patient is a 48yo M with no PMH presenting to the ED with vomiting and abdominal pain x1 day admitted for further evaluation and treatment. Plan: Fever Patient has fever spikes CT chest ,abd and pelvis -no cholecystitis,normal pancrease,normal kidneys,no lung path Procal low ?,mild leukocytosis,normal hep panel,no UTI follow US abdomen to rule out cholecystitis Start on ceftriaxone and flagyl empirically Abdominal Pain mild abdominal tenderness over bilateral hypochondrail area,no guarding ,no rigidity leukocytosis improving - CTA chest/abd/pel: nonobstructing 4mm L renal calculus. no hydronephrosis b/l. b/l prostate gland enlargement. no evidence of thoracic or abdominal aortic aneurysm or dissection. no evidence of central or segmental PE. liver, spleen, pancrease, gallbladder unremarkable. stomach nondistended. bowel loops without obstruction. lipase wnl, lactate improved with hydration hep panel negative Bradycardia - likely secondary to dehydration vs. vagal response to pain - EKG on admission: som @38bpm with junctional rhythm - rpt EKG: bradycardia - NS @125cc/hr - Cardiology consulted, Dr. Dubose f/u ECHO Hypokalemia kcl supplements PPX DVT: SCDs GI: protonix 40mg IV BID Diet liquid Dispo: advance diet as tolerated. awaiting ECHO prior to d/c.
--- NOTE | 2018-11-30 17:33 | US ---
Date of service: 11/30/2018 HISTORY: abdominal pain COMPARISON: Correlation made with CTA of the chest and abdomen dated 11/28/2018. TECHNIQUE: Sonographic evaluation of the abdomen. FINDINGS: LIVER: Measures 17.2 cm. . The liver exhibits inhomogeneous echotexture possibly due to fatty infiltration however other infiltrative hepatic cellular disease process not excluded. Clinical correlation recommended.. No mass. No intrahepatic bile duct dilatation. GALLBLADDER: There are several tiny echogenic non shadowing foci seen adherent to the gallbladder wall possibly representing gallbladder polyps. Adherent non calcified gallstones not excluded. Clinical correlation recommended.. The largest of these echogenic foci measure approximately 6.4 x 4.6 mm.. Follow-up gallbladder ultrasound in 4 6 months recommended for polyps greater than 6 mm cholecystectomy should be considered a given risk of malignant transformation.. Clinical correlation recommended. COMMON BILE DUCT: Measures 6.0 mm. No stones. No dilatation. PANCREAS: Pancreas is incompletely visualized particular detail due to body habitus and bowel gas though otherwise otherwise the visualized portions appear grossly unremarkable. RIGHT KIDNEY: Measures 12.2 x 6.0 x 5.6cm. Normal echogenicity. No calculus, mass, or hydronephrosis. LEFT KIDNEY: Measures 13.5 x 5.6 x 5.9cm. Normal echogenicity. No calculus, mass, or hydronephrosis. Small upper pole cyst measuring approximately 10 mm in greatest dimension. SPLEEN: Normal in size and contour. No mass. AORTA: No aneurysmal dilatation. IVC: Unremarkable. OTHER FINDINGS: None. IMPRESSION: Liver is upper limits of normal and inhomogeneous in appearance likely due to fatty infiltration however other infiltrative hepatocellular disease process not excluded. There are several echogenic non shadowing foci adherent to the gallbladder wall possibly representing polyps however the possibility of noncalcified adherent calculi not excluded.. Note that polyps less than 6 mm should be followed in 4 6 months with repeat gallbladder ultrasound. For polyps greater than 6 mm consider cholecystectomy due to risk of malignant transformation.
[2018-11-30] MEDS: cefTRIAXone 2 GM IN NS 2 GM/100 ML BAG IVPB SCH ×2 (19:07→20:30)
[2018-11-30] MEDS: metroNIDAZOLE IV 500 mg/100 ml 500 MG/100 ML BAG IVPB SCH (19:10)
--- NOTE | 2018-11-30 20:19 | PN ---
DATE: 11/30/2018 SUBJECTIVE: The patient's abdominal pain and nausea improved but did not completely disappear. He denies any dizziness. He is in sinus bradycardia in the 50s. No retrosternal chest pain. PHYSICAL EXAMINATION: VITAL SIGNS: Blood pressure 131/80, heart rate 58, temperature 97.9, respirations 20. HEENT: Normocephalic. CHEST: Clear. HEART: Sounds are regular. EXTREMITIES: No edema. LABORATORY DATA: Today's potassium is 3.3. Glucose is 114. Magnesium is 1.7, phosphorus 2.4 and calcium 8.2. Today's hemoglobin and hematocrit within normal limit. White count 14.2, platelet count 143,000. Abdominal ultrasound was performed, the report is still pending. ASSESSMENT: 1. Abdominal pain with nausea and vomiting upon presentation. 2. Improved sinus bradycardia. 3. Nonobstructing renal calculus. 4. Prostatic enlargement. 5. Hypokalemia, hypophosphatemia and hypocalcemia. CONDITION: The patient is currently receiving intravenous potassium chloride replacement. Continue Protonix 40 mg intravenous twice a day, subcutaneous heparin 5000 units every 12 hours. The patient is due to undergo echocardiographic study tomorrow. Nitesh Dubose MD
[2018-12-01] MEDS: Potassium Chl 20 mEq in NS 1,000 ML IV SCH ×4 (02:07→17:00)
[2018-12-01] MEDS: metroNIDAZOLE IV 500 mg/100 ml 500 MG/100 ML BAG IVPB SCH ×3 (02:08→16:56)
--- NOTE | 2018-12-01 07:18 | CP.PCM.PN ---
<Leno Hoover - Last Filed: 12/01/18 13:46> Subjective - Date & Time of Evaluation Date of Evaluation: 12/01/18 Time of Evaluation: 07:18 - Subjective Subjective: PGY-1 Medicine Progress Note for Dr. Schmid Patient seen and examined at bedside this AM, resting comfortably. Spiked mild fever overnight of 100.4. Pt continues to endorse generalized cramping abdominal pain, complains of constipation that subsequently makes him feel nauseous when he eats. 12 pt ROS reviewed and otherwise negative. Objective - Vital Signs/Intake and Output Vital Signs (last 24 hours): Temp Pulse Resp BP Pulse Ox 98.9 F 59 L 20 150/77 95 12/01/18 01:00 12/01/18 00:43 11/30/18 23:57 11/30/18 23:57 11/30/18 23:57 Intake and Output: 12/01/18 12/01/18 06:59 18:59 Intake Total 1450 Output Total 300 Balance 1150 - Medications Medications: Current Medications Heparin Sodium (Porcine) (Heparin) 5,000 units SC Q12 [facility] Last Admin: 11/30/18 22:49 Dose: 5,000 units Potassium Chloride/Sodium Chloride (Potassium Chl 20 Meq In Ns) 1,000 mls @ 125 mls/hr IV .Q8H [facility] Last Admin: 12/01/18 02:07 Dose: 125 mls/hr Ceftriaxone Sodium (Rocephin 2 Gm Ivpb) 2 gm in 100 mls @ 100 mls/hr IVPB Q24H [facility]; Protocol Last Admin: 11/30/18 20:30 Dose: 100 mls/hr Metronidazole (Flagyl) 500 mg in 100 mls @ 100 mls/hr IVPB Q8H [facility]; Protocol Last Admin: 12/01/18 02:08 Dose: 100 mls/hr Ketorolac Tromethamine (Toradol) 30 mg IV Q6 PRN PRN Reason: Pain, moderate (4-7) Last Admin: 11/30/18 13:37 Dose: 30 mg Ondansetron HCl (Zofran Inj) 4 mg IVP Q6 PRN PRN Reason: Nausea/Vomiting Pantoprazole Sodium (Protonix Inj) 40 mg IVP Q12H [facility] Last Admin: 11/30/18 22:49 Dose: 40 mg Tramadol HCl (Ultram) 25 mg PO TID PRN PRN Reason: Pain, severe (8-10) Last Admin: 11/30/18 19:08 Dose: 25 mg - Labs Labs: 11/30/18 08:26 11/30/18 08:26 PT 11.6 SECONDS (9.7-12.2) 11/28/18 06:19 INR 1.1 11/28/18 06:19 APTT 26 SECONDS (21-34) 11/28/18 06:19 - Constitutional Appears: Non-toxic, No Acute Distress - Head Exam Head Exam: ATRAUMATIC, NORMAL INSPECTION, NORMOCEPHALIC - Eye Exam Eye Exam: EOMI, Normal appearance Pupil Exam: NORMAL ACCOMODATION - ENT Exam ENT Exam: Mucous Membranes Moist, Normal Exam - Neck Exam Neck Exam: Full ROM, Normal Inspection - Respiratory Exam Respiratory Exam: Clear to Ausculation Bilateral, NORMAL BREATHING PATTERN. absent: Accessory Muscle Use, Rales, Rhonchi, Wheezes, Respiratory Distress, Stridor - Cardiovascular Exam Cardiovascular Exam: REGULAR RHYTHM, +S1, +S2 - GI/Abdominal Exam GI & Abdominal Exam: Guarding (mild guarding of lower abdomen), Soft, Tenderness (mild ttp lower abdomen), Normal Bowel Sounds. absent: Distended, Firm, Rigid, Rebound - Extremities Exam Extremities Exam: Full ROM, Normal Capillary Refill, Normal Inspection. absent: Calf Tenderness, Pedal Edema - Neurological Exam Neurological Exam: Alert, Awake, Oriented x3 - Skin Skin Exam: Dry, Intact, Normal Color, Warm Assessment and Plan - Assessment and Plan (Free Text) Assessment: 48yo M with no PMH presenting to the ED with vomiting and abdominal pain x1 day admitted for further evaluation and treatment. Plan: Fever -pt continues to have fever spikes, temp of 100.3 overnight -UA negative -hepatitis panel negative -procalcitionin low - mild leukocytosis, WBC 14.5 (12/01) -CT abd/pelvis/chest CTA (11/28): no cholecystitis noted, no pancreatic/renal/lung pathology. Nonobstructing 4mm L renal calculus, no hydronephrosis. -abdominal u/s: possible gallbladder polyps, largest 6.4 x 4.6mm. Follow-up recommended in 4-6 months with possible cholecystectomy -rocephin/flagyl started empirically (11/30) Abdominal Pain -CT abd/pelvis/chest CTA (11/28): no cholecystitis noted, no pancreatic/renal/lung pathology. Nonobstructing 4mm L renal calculus, no hydronephrosis. -abdominal u/s: possible gallbladder polyps, largest 6.4 x 4.6mm. Follow-up recommended in 4-6 months with possible cholecystectomy -lipase wnl, lactate improved with hydration -hep panel negative Bradycardia -likely secondary to dehydration vs. vagal response to pain -EKG on admission: som @38bpm with junctional rhythm -repeat EKG: bradycardia -NS @125cc/hr -f/u Cardio recs (Dr. Dubose) and official ECHO read Hypokalemia kcl supplements PPx, Diet, Disposition DVT: SCDs GI: protonix 40mg IV BID Diet: full liquid Dispo: advance diet as tolerated. Awaiting Cardiac clearance prior to discharge. Case discussed with Dr. Sharmaine Hoover DO, PGY-1 <Herman Schmid H - Last Filed: 12/01/18 14:21> Objective - Vital Signs/Intake and Output Vital Signs (last 24 hours): Temp Pulse Resp BP Pulse Ox 98.6 F 74 20 144/83 93 L 12/01/18 08:51 12/01/18 12:59 12/01/18 08:51 12/01/18 08:51 12/01/18 08:51 Intake and Output: 12/01/18 12/01/18 06:59 18:59 Intake Total 1450 Output Total 300 Balance 1150 - Medications Medications: Current Medications Heparin Sodium (Porcine) (Heparin) 5,000 units SC Q12 [facility] Last Admin: 12/01/18 09:53 Dose: 5,000 units Potassium Chloride/Sodium Chloride (Potassium Chl 20 Meq In Ns) 1,000 mls @ 125 mls/hr IV .Q8H [facility] Last Admin: 12/01/18 09:49 Dose: Not Given Metronidazole (Flagyl) 500 mg in 100 mls @ 100 mls/hr IVPB Q8H [facility]; Protocol Last Admin: 12/01/18 09:49 Dose: 100 mls/hr Ceftriaxone Sodium 2 gm/ (Sodium Chloride) 100 mls @ 100 mls/hr IVPB Q24H [facility]; Protocol Ondansetron HCl (Zofran Inj) 4 mg IVP Q6 PRN PRN Reason: Nausea/Vomiting Pantoprazole Sodium (Protonix Inj) 40 mg IVP Q12H [facility] Last Admin: 12/01/18 10:45 Dose: 40 mg Tramadol HCl (Ultram) 25 mg PO TID PRN PRN Reason: Pain, severe (8-10) Last Admin: 11/30/18 19:08 Dose: 25 mg - Labs Labs: 12/01/18 08:06 12/01/18 08:06 PT 11.6 SECONDS (9.7-12.2) 11/28/18 06:19 INR 1.1 11/28/18 06:19 APTT 26 SECONDS (21-34) 11/28/18 06:19 Attending/Attestation - Attestation I have personally seen and examined this patient.: Yes I have fully participated in the care of the patient.: Yes I have reviewed all pertinent clinical information, including history, physical exam and plan: Yes Notes (Text): 12/01/18 14:17 Medical attending: Patient was seen and examined by me. Agree with the above note by the resident The patient was not in any acute distress when we came and saw him. He reported very mild abdominal pain that was difficult to localize to any spot on his abdomen. No guarding, no rebound. His WBC is decreasing, advancing diet as tolerated
[2018-12-01 08:18] LABS: BASO % 0.3 % (0.0-2.0); EOS % 0.1 % (0.0-4.0); HEMOGLOBIN 14.3 g/dL (12.0-18.0); LYMPH # 2.1 K/uL (1.0-4.3); LYMPH % 14.3 % (20.0-40.0); MEAN CELL VOLUME 83.5 fL (80.0-94.0); MEAN CORPUSCULAR HEMOGLOBIN 28.5 pg (27.0-31.0); MEAN CORPUSCULAR HGB CONC 34.2 g/dL (33.0-37.0); NEUT # 11.4 K/uL (1.8-7.0); NEUT % 78.3 % (50.0-75.0); WHITE BLOOD COUNT 14.5 K/uL (4.8-10.8)
[2018-12-01 08:32] LABS: ALB/GLOB RATIO 1.4 (1.0-2.1); ALBUMIN 3.8 g/dL (3.5-5.0); ALT/SGPT 52 U/L (21-72); AST/SGOT 19 U/L (17-59); BLOOD UREA NITROGEN 7 mg/dL (9-20); CALCIUM 8.3 mg/dl (8.6-10.4); GFR NON-AFRICAN AMERICAN > 60
--- NOTE | 2018-12-01 12:52 | CARD ---
APPROVED REPORT Date of service: 11/28/2018 EKG Measurement Heart [id number] <Conclusion> Junctional bradycardia Abnormal ECG
--- NOTE | 2018-12-01 14:24 | CARD ---
APPROVED REPORT Date of service: 11/29/2018 EKG Measurement Heart [id number] <Conclusion> Sinus bradycardia Otherwise normal ECG
--- NOTE | 2018-12-01 16:49 | CP.PCM.PN ---
Subjective - Date & Time of Evaluation Date of Evaluation: 12/01/18 Time of Evaluation: 16:46 - Subjective Subjective: GI Service Initially had severe epigastric pain and vomiting, then pain became lower abdominal. Low grade fevers. Sono- +Gallstones (or polyps) Constipation and abdominal pain much better today Objective - Vital Signs/Intake and Output Vital Signs (last 24 hours): Temp Pulse Resp BP Pulse Ox 99.5 F 63 20 115/71 95 12/01/18 15:00 12/01/18 15:00 12/01/18 15:00 12/01/18 15:00 12/01/18 15:00 Intake and Output: 12/01/18 12/01/18 06:59 18:59 Intake Total 1450 Output Total 300 Balance 1150 - Medications Medications: Current Medications Heparin Sodium (Porcine) (Heparin) 5,000 units SC Q12 [facility] Last Admin: 12/01/18 09:53 Dose: 5,000 units Potassium Chloride/Sodium Chloride (Potassium Chl 20 Meq In Ns) 1,000 mls @ 125 mls/hr IV .Q8H [facility] Last Admin: 12/01/18 14:40 Dose: 125 mls/hr Metronidazole (Flagyl) 500 mg in 100 mls @ 100 mls/hr IVPB Q8H [facility]; Protocol Last Admin: 12/01/18 09:49 Dose: 100 mls/hr Ceftriaxone Sodium 2 gm/ (Sodium Chloride) 100 mls @ 100 mls/hr IVPB Q24H [facility]; Protocol Ondansetron HCl (Zofran Inj) 4 mg IVP Q6 PRN PRN Reason: Nausea/Vomiting Pantoprazole Sodium (Protonix Inj) 40 mg IVP Q12H [facility] Last Admin: 12/01/18 10:45 Dose: 40 mg Tramadol HCl (Ultram) 25 mg PO TID PRN PRN Reason: Pain, severe (8-10) Last Admin: 11/30/18 19:08 Dose: 25 mg - Labs Labs: 12/01/18 08:06 12/01/18 08:06 PT 11.6 SECONDS (9.7-12.2) 11/28/18 06:19 INR 1.1 11/28/18 06:19 APTT 26 SECONDS (21-34) 11/28/18 06:19 - Constitutional Appears: Well, No Acute Distress - Head Exam Head Exam: NORMOCEPHALIC - Eye Exam Eye Exam: absent: Scleral icterus - Respiratory Exam Respiratory Exam: NORMAL BREATHING PATTERN - Cardiovascular Exam Cardiovascular Exam: REGULAR RHYTHM - GI/Abdominal Exam GI & Abdominal Exam: Soft, Normal Bowel Sounds. absent: Tenderness, Mass, Rebound Assessment and Plan (1) Abdominal pain Assessment & Plan: I suspect biliary colic, now better Rec: monitor labs, advance diet as tolerated (low fat) Status: Acute
--- NOTE | 2018-12-01 18:33 | PN ---
DATE: 12/01/2018 SUBJECTIVE: The patient's abdominal pain and nausea improved as well as sinus bradycardia. PHYSICAL EXAMINATION: VITAL SIGNS: Blood pressure 146/92, heart rate 72, temperature 98.6, respirations 20. HEENT: Normocephalic. CHEST: Clear. HEART: S1 and S2 regular. EXTREMITIES: No edema. LABORATORY DATA: Today's white count 14.5. Hemoglobin, hematocrit and platelet count are within normal limits. Today's potassium of 3.5. Abdominal ultrasound report revealed liver upper limit of normal and inhomogeneous appearance due to fatty infiltrate. Several echogenic nonshadowing foci adherent to the gallbladder which possibly represent polyps, possibly noncalcified adherent calculi not excluded. ASSESSMENT: 1. Abdominal pain. 2. Sinus bradycardia, which improved. 3. Prostatic enlargement. 4. Mild hypokalemia. RECOMMENDATION: Continue current IV Rocephin and IV Flagyl. Continue potassium chloride replacement intravenously. I will follow echocardiographic study performed today. Nitesh Dubose MD
[2018-12-01] MEDS ORDERED: cefTRIAXone 2 GM in Sodium Chloride 0.9% 100 ML IVPB SCH (19:00)
--- NOTE | 2018-12-01 22:41 | CARD ---
APPROVED REPORT Date of service: 12/01/2018 EXAM: Two-dimensional and M-mode echocardiogram with Doppler and color Doppler. Other Information Quality : GoodRhythm : Bradycardia 2D DIMENSIONS IVSd0.8 (0.7-1.1cm)Aortic Root (2D)2.7 (2.0-3.7cm) LVDd4.9 (3.9-5.9cm)PWd0.9 (0.7-1.1cm) LA [id number] (18-58mL)LVDs2.6 (2.5-4.0cm) FS (%) 46.0 %LVEF (%)77.3 (>50%) LVEF (Rodriguez's)70 %IVC0.00 cm M-Mode DIMENSIONS RVDd2.08 (2.1-3.2cm)Left Atrium (MM)4.23 (2.5-4.0cm) IVSd0.74 (0.7-1.1cm)Aortic Root3.07 (2.2-3.7cm) LVDd5.69 (4.0-5.6cm)Aortic Cusp Exc.2.02 (1.5-2.0cm) PWd0.76 (0.7-1.1cm)FS (%) 43 % LVDs3.27 (2.0-3.8cm)TAPSE21.80 cm LVEF (%)73 (>50%) Mitral Valve MV E Qyfdbhog45.0cm/sMV A Erplkdzj78.3cm/sE/A ratio1.3 WHQX798.16 cm/s TDI Lateral E' Peak V9.71cm/sMedial E' Peak V8.61cm/sE/Lateral E'9.9 E/Medial E'11.1 Tricuspid Valve TR Peak Ckcsuqdl230nk/sTR Peak Gr.[id number] LEFT VENTRICLE The left ventricle is normal size. There is normal left ventricular wall thickness. The left ventricular function is normal. The left ventricular ejection fraction is within the normal range. 67% No regional wall motion abnormalities noted. The left ventricular diastolic function is normal. No left ventricle thrombus noted on this study. There is no ventricular septal defect visualized. There is no left ventricular aneurysm. There is no mass noted in the left ventricle. RIGHT VENTRICLE The right ventricle is normal size. There is normal right ventricular wall thickness. The right ventricular systolic function is normal. ATRIA The left atrium size is normal. The right atrium size is normal. The interatrial septum is intact with no evidence for an atrial septal defect. AORTIC VALVE The aortic valve is normal in structure and function. Trace eccentric aortic regurgitation is present. There is no aortic valvular stenosis. There is no aortic valvular vegetation. MITRAL VALVE The mitral valve is normal in structure and function. There is no evidence of mitral valve prolapse. There is no mitral valve stenosis. There is trace mitral valve regurgitation noted. TRICUSPID VALVE The tricuspid valve is normal in structure and function. There is no tricuspid valve regurgitation noted. There is no tricuspid valve prolapse or vegetation. There is no tricuspid valve stenosis. PULMONIC VALVE The pulmonary valve is normal in structure and function. There is no pulmonic valvular regurgitation. There is no pulmonic valvular stenosis. GREAT VESSELS The aortic root is normal in size. The ascending aorta is normal in size. The pulmonary artery is normal. The IVC is normal in size and collapses >50% with inspiration. PERICARDIAL EFFUSION The pericardium appears normal. There is no pleural effusion. <Conclusion> The left ventricular function is normal. Trace eccentric aortic regurgitation is present.
[2018-12-02] MEDS: metroNIDAZOLE IV 500 mg/100 ml 500 MG/100 ML BAG IVPB SCH ×2 (01:08→09:51)
[2018-12-02] MEDS: Potassium Chl 20 mEq in NS 1,000 ML IV SCH ×2 (01:08→09:51)
--- NOTE | 2018-12-02 07:24 | CP.PCM.DIS ---
<Leno Hoover - Last Filed: 12/02/18 14:33> Provider - Provider Date of Admission: 11/28/18 09:41 Attending physician: Akhil Tristan MD Consults: 11/29/18 07:52 Cardiology Consult Routine Comment: Consulting Provider: Nitesh Dubose Consulting Physician: Nitesh Dubose Reason for Consult: pt with symptomatic bradycardia, EKG showing junctional rhyth 11/30/18 07:29 Physician Consult Routine Comment: Consulting Provider: Godwin Carroll Consulting Physician: Godwin Carroll Reason for Consult: Abdominal pain,nausea,fever Time Spent in preparation of Discharge (in minutes): 40 Diagnosis - Discharge Diagnosis (1) Abdominal pain Status: Acute (2) Nausea & vomiting Status: Acute Hospital Course - Lab Results Lab Results: Micro Results 11/28/18 11:27 Blood Blood Culture - Preliminary NO GROWTH AFTER 3 DAYS 11/28/18 11:27 Blood Blood Culture - Preliminary NO GROWTH AFTER 3 DAYS 11/28/18 09:55 Urine,Clean Catch Urine Culture - Final No Growth (<1,000 CFU/ML) Most Recent Lab Values WBC 14.5 K/uL (4.8-10.8) H 12/01/18 08:06 RBC 5.00 Mil/uL (4.40-5.90) 12/01/18 08:06 Hgb 14.3 g/dL (12.0-18.0) 12/01/18 08:06 Hct 41.8 % (35.0-51.0) 12/01/18 08:06 MCV 83.5 fL (80.0-94.0) 12/01/18 08:06 MCH 28.5 pg (27.0-31.0) 12/01/18 08:06 MCHC 34.2 g/dL (33.0-37.0) 12/01/18 08:06 RDW 13.0 % (11.5-14.5) 12/01/18 08:06 Plt Count 143 K/uL (130-400) 12/01/18 08:06 MPV 10.0 fL (7.2-11.7) 12/01/18 08:06 Neut % (Auto) 78.3 % (50.0-75.0) H 12/01/18 08:06 Lymph % (Auto) 14.3 % (20.0-40.0) L 12/01/18 08:06 [place] % (Auto) 7.0 % (0.0-10.0) 12/01/18 08:06 Eos % (Auto) 0.1 % (0.0-4.0) 12/01/18 08:06 Baso % (Auto) 0.3 % (0.0-2.0) 12/01/18 08:06 Neut # (Auto) 11.4 K/uL (1.8-7.0) H 12/01/18 08:06 Lymph # (Auto) 2.1 K/uL (1.0-4.3) 12/01/18 08:06 [place] # (Auto) 1.0 K/uL (0.0-0.8) H 12/01/18 08:06 Eos # (Auto) 0.0 K/uL (0.0-0.7) 12/01/18 08:06 Baso # (Auto) 0.0 K/uL (0.0-0.2) 12/01/18 08:06 PT 11.6 SECONDS (9.7-12.2) 11/28/18 06:19 INR 1.1 11/28/18 06:19 APTT 26 SECONDS (21-34) 11/28/18 06:19 Sodium 136 mmol/L (132-148) 12/01/18 08:06 Potassium 3.5 mmol/L (3.6-5.2) L 12/01/18 08:06 Chloride 103 mmol/L (98-107) 12/01/18 08:06 Carbon Dioxide 23 mmol/L (22-30) 12/01/18 08:06 Anion Gap 14 (10-20) 12/01/18 08:06 BUN 7 mg/dL (9-20) L 12/01/18 08:06 Creatinine 0.7 mg/dL (0.8-1.5) L 12/01/18 08:06 Est GFR ( Amer) > 60 12/01/18 08:06 Est GFR (Non-Af Amer) > 60 12/01/18 08:06 POC Glucose (mg/dL) 164 mg/dL (65-110) H 11/28/18 06:00 Random Glucose 98 mg/dL (75-110) 12/01/18 08:06 Hemoglobin A1c 5.4 % (4.2-6.5) 11/29/18 03:33 Lactic Acid 1.1 mmol/L (0.7-2.1) 11/30/18 08:26 Calcium 8.3 mg/dl (8.6-10.4) L 12/01/18 08:06 Phosphorus 2.8 mg/dL (2.5-4.5) 12/01/18 08:06 Magnesium 1.6 mg/dL (1.6-2.3) 12/01/18 08:06 Total Bilirubin 1.9 mg/dL (0.2-1.3) H 12/01/18 08:06 AST 19 U/L (17-59) 12/01/18 08:06 ALT 52 U/L (21-72) 12/01/18 08:06 Alkaline Phosphatase 112 U/L (38-126) 12/01/18 08:06 Total Creatine Kinase 44 U/L (55-170) L 11/29/18 03:33 CK-MB (Mass) < 0.22 ng/mL (0.0-3.38) 11/29/18 03:33 Troponin I < 0.0120 ng/mL (0.00-0.120) 11/29/18 03:33 NT-Pro-B Natriuret Pep 21.8 pg/mL (0-900) 11/28/18 06:19 Total Protein 6.5 g/dL (6.3-8.3) 12/01/18 08:06 Albumin 3.8 g/dL (3.5-5.0) 12/01/18 08:06 Globulin 2.7 gm/dL (2.2-3.9) 12/01/18 08:06 Albumin/Globulin Ratio 1.4 (1.0-2.1) 12/01/18 08:06 Triglycerides 100 mg/dL (0-149) 11/29/18 03:33 Cholesterol 150 mg/dL (0-199) 11/29/18 03:33 LDL Cholesterol Direct 99 mg/dL (0-129) 11/29/18 03:33 HDL Cholesterol 44 mg/dL (30-70) 11/29/18 03:33 Amylase 55 U/L (30-110) 11/30/18 08:26 Lipase 48 U/L (23-300) 11/30/18 08:26 Prostate Specific Ag 1.28 ng/mL (0.00-4.0) 11/29/18 12:59 Procalcitonin 0.06 NG/ML (0.19-0.49) L 11/30/18 08:26 Free T4 0.71 ng/dL (0.78-2.19) L 11/29/18 11:13 TSH 3rd Generation 0.53 mIU/L (0.46-4.68) 11/29/18 11:13 Urine Color Yellow (YELLOW) 11/28/18 08:59 Urine Clarity Clear (Clear) 11/28/18 08:59 Urine pH 5.0 (5.0-8.0) 11/28/18 08:59 Ur Specific [place] 1.015 (1.003-1.030) 11/28/18 08:59 Urine Protein Negative mg/dL (NEGATIVE) 11/28/18 08:59 Urine Glucose (UA) 1+ mg/dL (Normal) H 11/28/18 08:59 Urine Ketones Negative mg/dL (NEGATIVE) 11/28/18 08:59 Urine Blood Negative (NEGATIVE) 11/28/18 08:59 Urine Nitrate Negative (NEGATIVE) 11/28/18 08:59 Urine Bilirubin Negative (NEGATIVE) 11/28/18 08:59 Urine Urobilinogen 2.0 mg/dL (0.2-1.0) 11/28/18 08:59 Ur Leukocyte Esterase Neg Cecille/uL (Negative) 11/28/18 08:59 Urine WBC (Auto) 1 /hpf (0-5) 11/28/18 08:59 Urine RBC (Auto) 1 /hpf (0-3) 11/28/18 08:59 Ur Squamous Epith Cells < 1 /hpf (0-5) 11/28/18 08:59 Urine Bacteria Rare (<OCC) 11/28/18 08:59 Urine Opiates Screen Positive (NEGATIVE) H 11/28/18 10:02 Urine Methadone Screen Negative (NEGATIVE) 11/28/18 10:02 Ur Barbiturates Screen Negative (NEGATIVE) 11/28/18 10:02 Ur Phencyclidine Scrn Negative (NEGATIVE) 11/28/18 10:02 Ur Amphetamines Screen Negative (NEGATIVE) 11/28/18 10:02 U Benzodiazepines Scrn Negative (NEGATIVE) 11/28/18 10:02 U Oth Cocaine Metabols Negative (NEGATIVE) 11/28/18 10:02 U Cannabinoids Screen Negative (NEGATIVE) 11/28/18 10:02 Hepatitis A IgM Ab Negative (NEGATIVE) 11/29/18 03:33 Hep Bs Antigen Negative (NEGATIVE) 11/29/18 03:33 Hep B Core IgM Ab Negative (NEGATIVE) 11/29/18 03:33 Hepatitis C Antibody Negative (NEGATIVE) 11/29/18 03:33 HIV 1&2 Antibody Screen Negative (NEGATIVE) 11/30/18 08:26 Influenza Typ A,B (EIA) Negative for flu a/b (NEGATIVE) 11/30/18 08:12 Blood Type B POSITIVE 11/28/18 06:19 Antibody Screen Negative 11/28/18 06:19 - Hospital Course Hospital Course: HPI: Patient is a 48 year old male with no past medical history presenting to the ED with vomiting and abdominal pain x1 day. He reports the nausea began at 2am after which the abdominal discomfort began. He reports multiple episodes of nonbloody, green/yellow vomit. He describes the abdominal pain as cramping, intermittent and 9/10 at its worst. He claims the pain is in his upper midline abdomen and radiates to his back. He says he was sweating. He denies taking anything at home to help. He reports eating beef and rice from takeout last night from dinner. He reports previous history of this, upon which he came to ED and was told he had food poisoning. He says his stools are soft and formed. He denies diarrhea, dysuria, dizziness, shortness of breath, chest pain, numbness or tingling. He denies drinking alcohol last night. During course of hospital stay: UA obtained was negative, hepatitis panel was negative, procalcitonin was not elevated. Blood cultures obtained showed no growth. CT abdomen/pelvis revealed no cholecystitis, a nonobstructing 4mm left renal calculus with no hydronephrosis. Abdominal ultrasound obtained showed possible gallbladder polyps, largest 6.4 x 4.6mm. Follow-up imaging was recommended in 4-6 months with possible cholecystectomy. Patient was kept NPO and given IV fluids until abdominal pain improved, after which diet was advanced as tolerated. GI (Dr. Taylor) was consulted and biliary colic was suspected. Labs were monitored, diet was advanced as tolerated (low fat). Patient is medically stable for discharge as per Dr. Schmid. Abdominal pain likely due to biliary colic, as per GI recommendations. Patient was counseled on diet modification, including reducing the amount of fatty and fried foods consumed. Please follow up in [facility] within 3-5 days of discharge for further monitoring and care. Contact information has been provided below. Please call to schedule an appointment. Patient was encouraged to have follow-up abdominal ultrasound for suspected polyps vs gallstones within 4-6 months. [facility] [place] [address] If symptoms worsen or recur, please return to the ED immediately. - Date & Time of H&P Date of H&P: 12/02/18 Time of H&P: 14:25 Discharge Exam - Head Exam Head Exam: NORMAL INSPECTION, NORMOCEPHALIC - Eye Exam Eye Exam: EOMI, Normal appearance, PERRL Pupil Exam: NORMAL ACCOMODATION - ENT Exam ENT Exam: Mucous Membranes Moist, Normal Exam - Neck Exam Neck exam: Full Rom, Normal Inspection - Respiratory Exam Respiratory Exam: Clear to PA & Lateral, NORMAL BREATHING PATTERN, UNREMARKABLE. absent: Accessory Muscle Use, Rales, Rhonchi, Wheezes, Respiratory Distress, Stridor - Cardiovascular Exam Cardiovascular Exam: REGULAR RHYTHM, +S1, +S2 - GI/Abdominal Exam GI & Abdominal Exam: Normal Bowel Sounds, Soft, Unremarkable. absent: Distended, Firm, Guarding, Rebound, Rigid, Tenderness - Extremities Exam Extremities exam: full ROM, normal capillary refill, normal inspection, pedal pulses present - Back Exam Back exam: NORMAL INSPECTION - Neurological Exam Neurological exam: Alert, CN II-XII Intact, Oriented x3 - Psychiatric Exam Psychiatric exam: Normal Affect, Normal Mood - Skin Skin Exam: Dry, Intact, Normal Color, Warm Discharge Plan - Follow Up Plan Condition: FAIR Disposition: HOME/ ROUTINE Instructions: Low Cholesterol, Saturated Fat, and Trans Fat Diet , Acute Abdomen (Belly Pain), Adult (DC), Bradycardia (DC), Low Blood Pressure (DC) Additional Instructions: Patient is medically stable for discharge as per Dr. Schmid. Abdominal pain likely due to biliary colic, as per GI recommendations. Patient was counseled on diet modification, including reducing the amount of fatty and fried foods consumed. Please follow up in [facility] within 3-5 days of discharge for further monitoring and care. Contact information has been provided below. Please call to schedule an appointment. Patient was encouraged to have follow-up abdominal ultrasound for suspected polyps vs gallstones within 4-6 [place] [address] If symptoms worsen or recur, please return to the ED immediately. <Herman Schmid - Last Filed: 12/02/18 17:09> Provider - Provider Date of Admission: 11/28/18 09:41 Attending physician: Akhil Tristan MD Consults: 11/29/18 07:52 Cardiology Consult Routine Comment: Consulting Provider: Nitesh Dubose Consulting Physician: Nitesh Dubose Reason for Consult: pt with symptomatic bradycardia, EKG showing junctional rhyth 11/30/18 07:29 Physician Consult Routine Comment: Consulting Provider: Godwin Carroll Consulting Physician: Godwin Carroll Reason for Consult: Abdominal pain,nausea,fever Hospital Course - Lab Results Lab Results: Micro Results 11/28/18 11:27 Blood Blood Culture - Preliminary NO GROWTH AFTER 4 DAYS 11/28/18 11:27 Blood Blood Culture - Preliminary NO GROWTH AFTER 4 DAYS 11/28/18 09:55 Urine,Clean Catch Urine Culture - Final No Growth (<1,000 CFU/ML) Most Recent Lab Values WBC 8.2 K/uL (4.8-10.8) 12/02/18 07:19 RBC 5.17 Mil/uL (4.40-5.90) 12/02/18 07:19 Hgb 14.9 g/dL (12.0-18.0) 12/02/18 07:19 Hct 43.0 % (35.0-51.0) 12/02/18 07:19 MCV 83.2 fL (80.0-94.0) 12/02/18 07:19 MCH 28.9 pg (27.0-31.0) 12/02/18 07:19 MCHC 34.7 g/dL (33.0-37.0) 12/02/18 07: RDW 13.3 % (11.5-14.5) 12/02/18 07:19 Plt Count 186 K/uL (130-400) 12/02/18 07:19 MPV 9.1 fL (7.2-11.7) 12/02/18 07: Neut % (Auto) 72.5 % (50.0-75.0) 12/02/18 07: Lymph % (Auto) 18.0 % (20.0-40.0) L 12/02/18 07: [place] % (Auto) 7.9 % (0.0-10.0) 12/02/18 07: Eos % (Auto) 1.1 % (0.0-4.0) 12/02/18 07: Baso % (Auto) 0.5 % (0.0-2.0) 12/02/18 07: Neut # (Auto) 6.0 K/uL (1.8-7.0) 12/02/18 07:19 Lymph # (Auto) 1.5 K/uL (1.0-4.3) 12/02/18 07:19 [place] # (Auto) 0.6 K/uL (0.0-0.8) 12/02/18 07:19 Eos # (Auto) 0.1 K/uL (0.0-0.7) 12/02/18 07: Baso # (Auto) 0.0 K/uL (0.0-0.2) 12/02/18 07:19 PT 11.6 SECONDS (9.7-12.2) 11/28/18 06:19 INR 1.1 11/28/18 06:19 APTT 26 SECONDS (21-34) 11/28/18 06:19 Sodium 138 mmol/L (132-148) 12/02/18 07:19 Potassium 3.8 mmol/L (3.6-5.2) 12/02/18 07:19 Chloride 106 mmol/L (98-107) 12/02/18 07:19 Carbon Dioxide 25 mmol/L (22-30) 12/02/18 07:19 Anion Gap 12 (10-20) 12/02/18 07:19 BUN 9 mg/dL (9-20) 12/02/18 07:19 Creatinine 0.8 mg/dL (0.8-1.5) 12/02/18 07:19 Est GFR ( Amer) > 60 12/02/18 07:19 Est GFR (Non-Af Amer) > 60 12/02/18 07:19 POC Glucose (mg/dL) 164 mg/dL (65-110) H 11/28/18 06:00 Random Glucose 91 mg/dL (75-110) 12/02/18 07:19 Hemoglobin A1c 5.4 % (4.2-6.5) 11/29/18 03:33 Lactic Acid 1.1 mmol/L (0.7-2.1) 11/30/18 08:26 Calcium 8.5 mg/dl (8.6-10.4) L 12/02/18 07:19 Phosphorus 3.7 mg/dL (2.5-4.5) 12/02/18 07:19 Magnesium 1.9 mg/dL (1.6-2.3) 12/02/18 07:19 Total Bilirubin 1.1 mg/dL (0.2-1.3) 12/02/18 07:19 AST 12 U/L (17-59) L D 12/02/18 07:19 ALT 40 U/L (21-72) 12/02/18 07:19 Alkaline Phosphatase 107 U/L (38-126) 12/02/18 07:19 Total Creatine Kinase 44 U/L (55-170) L 11/29/18 03:33 CK-MB (Mass) < 0.22 ng/mL (0.0-3.38) 11/29/18 03:33 Troponin I < 0.0120 ng/mL (0.00-0.120) 11/29/18 03:33 NT-Pro-B Natriuret Pep 21.8 pg/mL (0-900) 11/28/18 06:19 Total Protein 6.7 g/dL (6.3-8.3) 12/02/18 07:19 Albumin 3.8 g/dL (3.5-5.0) 12/02/18 07:19 Globulin 2.9 gm/dL (2.2-3.9) 12/02/18 07:19 Albumin/Globulin Ratio 1.3 (1.0-2.1) 12/02/18 07:19 Triglycerides 100 mg/dL (0-149) 11/29/18 03:33 Cholesterol 150 mg/dL (0-199) 11/29/18 03:33 LDL Cholesterol Direct 99 mg/dL (0-129) 11/29/18 03:33 HDL Cholesterol 44 mg/dL (30-70) 11/29/18 03:33 Amylase 55 U/L (30-110) 11/30/18 08:26 Lipase 48 U/L (23-300) 11/30/18 08:26 Prostate Specific Ag 1.28 ng/mL (0.00-4.0) 11/29/18 12:59 Procalcitonin 0.06 NG/ML (0.19-0.49) L 11/30/18 08:26 Free T4 0.71 ng/dL (0.78-2.19) L 11/29/18 11:13 TSH 3rd Generation 0.53 mIU/L (0.46-4.68) 11/29/18 11:13 Urine Color Yellow (YELLOW) 11/28/18 08:59 Urine Clarity Clear (Clear) 11/28/18 08:59 Urine pH 5.0 (5.0-8.0) 11/28/18 08:59 Ur Specific [place] 1.015 (1.003-1.030) 11/28/18 08:59 Urine Protein Negative mg/dL (NEGATIVE) 11/28/18 08:59 Urine Glucose (UA) 1+ mg/dL (Normal) H 11/28/18 08:59 Urine Ketones Negative mg/dL (NEGATIVE) 11/28/18 08:59 Urine Blood Negative (NEGATIVE) 11/28/18 08:59 Urine Nitrate Negative (NEGATIVE) 11/28/18 08:59 Urine Bilirubin Negative (NEGATIVE) 11/28/18 08:59 Urine Urobilinogen 2.0 mg/dL (0.2-1.0) 11/28/18 08:59 Ur Leukocyte Esterase Neg Cecille/uL (Negative) 11/28/18 08:59 Urine WBC (Auto) 1 /hpf (0-5) 11/28/18 08:59 Urine RBC (Auto) 1 /hpf (0-3) 11/28/18 08:59 Ur Squamous Epith Cells < 1 /hpf (0-5) 11/28/18 08:59 Urine Bacteria Rare (<OCC) 11/28/18 08:59 Urine Opiates Screen Positive (NEGATIVE) H 11/28/18 10:02 Urine Methadone Screen Negative (NEGATIVE) 11/28/18 10:02 Ur Barbiturates Screen Negative (NEGATIVE) 11/28/18 10:02 Ur Phencyclidine Scrn Negative (NEGATIVE) 11/28/18 10:02 Ur Amphetamines Screen Negative (NEGATIVE) 11/28/18 10:02 U Benzodiazepines Scrn Negative (NEGATIVE) 11/28/18 10:02 U Oth Cocaine Metabols Negative (NEGATIVE) 11/28/18 10:02 U Cannabinoids Screen Negative (NEGATIVE) 11/28/18 10:02 Hepatitis A IgM Ab Negative (NEGATIVE) 11/29/18 03:33 Hep Bs Antigen Negative (NEGATIVE) 11/29/18 03:33 Hep B Core IgM Ab Negative (NEGATIVE) 11/29/18 03:33 Hepatitis C Antibody Negative (NEGATIVE) 11/29/18 03:33 HIV 1&2 Antibody Screen Negative (NEGATIVE) 11/30/18 08:26 Influenza Typ A,B (EIA) Negative for flu a/b (NEGATIVE) 11/30/18 08:12 Blood Type B POSITIVE 11/28/18 06:19 Antibody Screen Negative 11/28/18 06:19 Attending/Attestation - Attestation I have personally seen and examined this patient.: Yes I have fully participated in the care of the patient.: Yes I have reviewed all pertinent clinical information, including history, physical exam and plan: Yes Notes (Text): 12/02/18 17:02 Medical attending: Patient was seen and examined by me. Agree with the above note by the resident The patient was not in any acute distress when we came and saw him. He did not have pain on exam We reviewed with him the results of the imaging and we advised the patient that in the future will need further follow up ultrasound We also advised lifestyle changes as well Herman Schmid
[2018-12-02 07:31] LABS: BASO % 0.5 % (0.0-2.0); EOS # 0.1 K/uL (0.0-0.7); EOS % 1.1 % (0.0-4.0); HEMOGLOBIN 14.9 g/dL (12.0-18.0); LYMPH # 1.5 K/uL (1.0-4.3); MEAN CELL VOLUME 83.2 fL (80.0-94.0); MEAN CORPUSCULAR HEMOGLOBIN 28.9 pg (27.0-31.0); MEAN CORPUSCULAR HGB CONC 34.7 g/dL (33.0-37.0); MEAN PLATELET VOLUME 9.1 fL (7.2-11.7); MONO # 0.6 K/uL (0.0-0.8); MONO % 7.9 % (0.0-10.0); NEUT % 72.5 % (50.0-75.0); RBC 5.17 Mil/uL (4.40-5.90); RED CELL DISTRIBUTION WIDTH 13.3 % (11.5-14.5); WHITE BLOOD COUNT 8.2 K/uL (4.8-10.8)
[2018-12-02 07:53] LABS: ALB/GLOB RATIO 1.3 (1.0-2.1); ALBUMIN 3.8 g/dL (3.5-5.0); ALT/SGPT 40 U/L (21-72); AST/SGOT 12 U/L (17-59); BLOOD UREA NITROGEN 9 mg/dL (9-20); CALCIUM 8.5 mg/dl (8.6-10.4); GFR NON-AFRICAN AMERICAN > 60
--- NOTE | 2018-12-02 14:52 | CP.PCM.PN ---
Subjective - Date & Time of Evaluation Date of Evaluation: 12/02/18 Time of Evaluation: 13:45 - Subjective Subjective: f/u abdom pain. present. Denies abd pain, vomiting, fever, chills, SZ, LOC, CARTY cough,Cp, SOB Objective - Vital Signs/Intake and Output Vital Signs (last 24 hours): Temp Pulse Resp BP Pulse Ox 97.7 F 62 20 136/83 94 L 12/02/18 07:45 12/02/18 07:45 12/02/18 07:45 12/02/18 07:45 12/02/18 07:45 Intake and Output: 12/02/18 12/02/18 06:59 18:59 Intake Total 900 Balance 900 - Medications Medications: Current Medications Heparin Sodium (Porcine) (Heparin) 5,000 units SC Q12 SILVANO Last Admin: 12/02/18 09:54 Dose: 5,000 units Potassium Chloride/Sodium Chloride (Potassium Chl 20 Meq In Ns) 1,000 mls @ 125 mls/hr IV .Q8H SILVANO Last Admin: 12/02/18 09:51 Dose: 125 mls/hr Metronidazole (Flagyl) 500 mg in 100 mls @ 100 mls/hr IVPB Q8H SILVANO; Protocol Last Admin: 12/02/18 09:51 Dose: 100 mls/hr Ceftriaxone Sodium 2 gm/ (Sodium Chloride) 100 mls @ 100 mls/hr IVPB Q24H SILVANO; Protocol Last Admin: 12/01/18 18:24 Dose: 100 mls/hr Ondansetron HCl (Zofran Inj) 4 mg IVP Q6 PRN PRN Reason: Nausea/Vomiting Pantoprazole Sodium (Protonix Inj) 40 mg IVP Q12H SILVANO Last Admin: 12/02/18 10:45 Dose: 40 mg Tramadol HCl (Ultram) 25 mg PO TID PRN PRN Reason: Pain, severe (8-10) Last Admin: 11/30/18 19:08 Dose: 25 mg - Labs Labs: 12/02/18 07:19 12/02/18 07:19 PT 11.6 SECONDS (9.7-12.2) 11/28/18 06:19 INR 1.1 11/28/18 06:19 APTT 26 SECONDS (21-34) 11/28/18 06:19 - Constitutional Appears: Well - Respiratory Exam Respiratory Exam: Clear to Ausculation Bilateral - Cardiovascular Exam Cardiovascular Exam: RRR - GI/Abdominal Exam GI & Abdominal Exam: Soft, Normal Bowel Sounds. absent: Guarding, Rigid, Tenderness, Mass - Extremities Exam Extremities Exam: absent: Calf Tenderness - Neurological Exam Neurological Exam: Alert, Oriented x3 Assessment and Plan (1) Abdominal pain Assessment & Plan: Better. Consider GB disease. Sono shows stones vs polyps in GB Status: Acute (2) Bradycardia Status: Acute (3) Hypotension Assessment & Plan: better Status: Acute (4) Nausea & vomiting Status: Acute (5) Cholelithiasis Assessment & Plan: GB stones vs polyps. If polyps, consider LEWIS surgery. I discussed this and risk for cancer with patient and . Pt will f/u in office in 4 weeks Status: Acute
[2018-12-02 15:23] VITALS: BP 137/84; PULSE 72; TEMP 98; O2SAT 95
== END 2018-12-02 15:56 | disposition home or self-care (01) ==
LOC: C.ER 05:57 → C.5S 09:41
PROVIDERS: ADMIT Internal Medicine; ATTEND Internal Medicine
DX: K80.20 Calculus of gallbladder without cholecystitis without obstruction (principal); R00.1 Bradycardia, unspecified; I95.9 Hypotension, unspecified; E83.39 Other disorders of phosphorus metabolism; E86.0 Dehydration; E87.6 Hypokalemia; E83.51 Hypocalcemia; K59.00 Constipation, unspecified; N20.0 Calculus of kidney; N40.0 Benign prostatic hyperplasia without lower urinary tract symptoms; F17.210 Nicotine dependence, cigarettes, uncomplicated; Z59.0 Homelessness; Z82.3 Family history of stroke; Z83.3 Family history of diabetes mellitus